=== PATIENT | female | born 1980 | race Caucasian/White ===

== ENCOUNTER 2018-04-22 19:29 | Emergency (ER) | payer OTHER ==
--- NOTE | 2018-04-22 20:17 | ER ---
Nurse's Notes [facility] Name: Sheela Butler Age: 38 yrs Sex: Female : 1980 Arrival Date: 04/22/2018 Time: 19:31 Bed Treatment Private MD: Diagnosis: Sacroiliitis, not elsewhere classified Presentation: 04/22 19:47 Presenting complaint: Patient states: she has been having low back pain after lifting a aa1 patient at work yesterday. C/O sharp low back pain 11/23. Transition of care: patient was not received from another setting of care. Onset of symptoms was April 21, 2018. Risk Assessment: Do you want to hurt yourself or someone else? Patient reports no desire to harm self or others. Initial Sepsis Screen: Does the patient meet any 2 criteria? No. Patient's initial sepsis screen is negative. Does the patient have a suspected source of infection? No. Patient's initial sepsis screen is negative. Care prior to arrival: None. 19:47 Method Of Arrival: Ambulatory aa1 19:47 Acuity: HAFSA 4 aa1 Historical: - Allergies: 19:48 No Known Allergies; aa1 - Home Meds: 19:48 citalopram oral [Active]; lisinopril Oral [Active]; aa1 - PMHx: 19:48 Depression; heart arrhythmia; Hypertension; aa1 - PSHx: 19:48 None; aa1 - Immunization history:: Flu vaccine is up to date. - Social history:: Smoking status: Patient/guardian denies using tobacco. - Ebola Screening: : No symptoms or risks identified at this time. Screenin:49 Abuse screen: Denies threats or abuse. Denies injuries from another. Abuse screen:. aa1 Nutritional screening: No deficits noted. Tuberculosis screening: No symptoms or risk factors identified. Fall Risk None identified. Assessment: 19:49 General: Appears in no apparent distress. uncomfortable, Behavior is calm, cooperative, aa1 appropriate for age. Pain: Complains of pain in low back area Pain currently is 7 out of 10 on a pain scale. Quality of pain is described as sharp, Pain began 1 day ago. Is continuous, Aggravated by repositioning. Neuro: Level of Consciousness is awake, alert, obeys commands, Oriented to person, place, time, situation, Moves all extremities. Full function Gait is steady. Respiratory: Airway is patent Respiratory effort is even, unlabored, Respiratory pattern is regular, symmetrical. GI: No signs and/or symptoms were reported involving the gastrointestinal system. : No signs and/or symptoms were reported regarding the genitourinary system. EENT: No signs and/or symptoms were reported regarding the EENT system. Derm: Skin is intact, is healthy with good turgor, Skin is pink, warm \T\ dry. Musculoskeletal: Circulation, motion, and sensation intact. Capillary refill < 3 seconds, Range of motion: intact in all extremities. 20:25 Reassessment: Patient appears in no apparent distress at this time. Patient is alert, aa1 oriented x 3, equal unlabored respirations, skin warm/dry/pink. Discussed d/c \T\ f/u instructions with pt; denies questions or concerns at this time. Vital Signs: 19:48 BP 134 / 71; Pulse 67; Resp 18; Temp 98.1; Pulse Ox 98% on R/A; Weight 117.93 kg; aa1 Height 5 ft. 6 in. (167.64 cm); Pain 7/10; 19:48 Body Mass Index 41.96 (117.93 kg, 167.64 cm) aa1 ED Course: 19:31 Patient arrived in ED. aa1 19:32 José Miguel Rojas MD is Attending Physician. aa1 19:47 Kathrin Bravo RN is Primary Nurse. aa1 19:47 Triage completed. aa1 19:48 Arm band placed on left wrist. aa1 19:49 Patient has correct armband on for positive identification. Bed in low position. Call aa1 light in reach. 20:25 No provider procedures requiring assistance completed. Patient did not have IV access aa1 during this emergency room visit. Administered Medications: No medications were administered Outcome: 20:16 Discharge ordered by . ps1 20:25 Discharged to home ambulatory. aa1 20:25 Condition: good 20:25 Discharge instructions given to patient, Instructed on discharge instructions, follow up and referral plans. medication usage, Demonstrated understanding of instructions, follow-up care, medications, Prescriptions given X 1. 20:26 Patient left the ED. aa1 Signatures: Kathrin Bravo RN RN aa1 José Miguel Rojas MD MD ps1
--- NOTE | 2018-04-22 20:17 | EDPHYS ---
Physician Documentation [facility] Name: Sheela Butler Age: 38 yrs Sex: Female : 1980 Arrival Date: 04/22/2018 Time: 19:31 Bed Treatment Private MD: ED Physician José Miguel Rojas HPI: 04/22 20:10 This 38 yrs old Female presents to ER via Ambulatory with complaints of Back ps1 Pain. 20:10 patient states that she injured her back with lifting a patient. Pain localized to ps1 lower left back. No radiation. Bilateral L>R. Pain rated as moderate. Not immunocompromised, on chronic sterioids, atraumatic, No saddle signs. c/w SI joint dysfunction. Historical: - Allergies: 19:48 No Known Allergies; aa1 - Home Meds: 19:48 citalopram oral [Active]; lisinopril Oral [Active]; aa1 - PMHx: 19:48 Depression; heart arrhythmia; Hypertension; aa1 - PSHx: 19:48 None; aa1 - Immunization history:: Flu vaccine is up to date. - Social history:: Smoking status: Patient/guardian denies using tobacco. - Ebola Screening: : No symptoms or risks identified at this time. ROS: 20:10 Constitutional: Negative for fever, chills, and weight loss, Eyes: Negative for injury, ps1 pain, redness, and discharge, Cardiovascular: Negative for chest pain, palpitations, and edema, Respiratory: Negative for shortness of breath, cough, wheezing, and pleuritic chest pain, Abdomen/GI: Negative for abdominal pain, nausea, vomiting, diarrhea, and constipation, MS/Extremity: Negative for injury and deformity, Skin: Negative for injury, rash, and discoloration, Neuro: Negative for headache, weakness, numbness, tingling, and seizure, Psych: Negative for depression, anxiety, suicide ideation, homicidal ideation, and hallucinations. 20:10 Back: Positive for decreased range of motion, . Exam: 20:10 Constitutional: This is a well developed, well nourished patient who is awake, alert, ps1 and in no acute distress. Head/Face: Normocephalic, atraumatic. Eyes: Pupils equal round and reactive to light, extra-ocular motions intact. Lids and lashes normal. Conjunctiva and sclera are non-icteric and not injected. Chest/axilla: Normal chest wall appearance and motion. Nontender with no deformity. No lesions are appreciated. Cardiovascular: Regular rate and rhythm. No gallops, murmurs, or rubs. Normal PMI, no JVD. No pulse deficits. Respiratory: Lungs have equal breath sounds bilaterally, clear to auscultation and percussion. No rales, rhonchi or wheezes noted. No increased work of breathing, no retractions or nasal flaring. Abdomen/GI: Soft, non-tender, with normal bowel sounds. No distension or tympany. No guarding or rebound. No evidence of tenderness throughout. 20:10 Back: SI joint dysfunction and asymmetry on L. Leg length discrepancy. L3-5 group curve ps1 SLRL. compensatory changes in thoracic and cervical spine. . Vital Signs: 19:48 BP 134 / 71; Pulse 67; Resp 18; Temp 98.1; Pulse Ox 98% on R/A; Weight 117.93 kg; aa1 Height 5 ft. 6 in. (167.64 cm); Pain 7/10; 19:48 Body Mass Index 41.96 (117.93 kg, 167.64 cm) aa1 Procedures: 20:14 Performed HVLA manipulation. HVLA performed to C,T,L spine. Pain improved after ps1 procedure. MDM: 20:00 Patient medically screened. ps1 20:14 Data reviewed: vital signs, nurses notes. ps1 Administered Medications: No medications were administered Disposition: 04/22/18 20:16 Discharged to Home. Impression: Sacroiliitis, not elsewhere classified. - Condition is Stable. - Discharge Instructions: Back Pain, Adult. - Prescriptions for Robaxin 500 mg Oral Tablet - take 2 tablet by ORAL route every 6 hours As needed; 40 tablet. - Medication Reconciliation Form, Thank You Letter, Antibiotic Education, Prescription Opioid Use form. - Follow up: Private Physician; When: As needed; Reason: Recheck today's complaints, Continuance of care, Re-evaluation by your physician. Follow up: Emergency Department; When: As needed; Reason: Worsening of condition. - Problem is new. - Symptoms are resolved. Signatures: Kathrin Bravo RN RN aa1 José Miguel Rojas MD MD ps1 Corrections: (The following items were deleted from the chart) 20:14 20:10 Back: Positive for decreased range of motion, SI joint dysfunction and assymetry ps1 on L. Leg length discrepancy. L3-5 group curve SLRL. compensatory changes in thoracic and cervical spine. , ps1 20:26 20:16 04/22/2018 20:16 Discharged to Home. Impression: Sacroiliitis, not elsewhere aa1 classified. Condition is Stable. Forms are Medication Reconciliation Form, Thank You Letter, Antibiotic Education, Prescription Opioid Use. Follow up: Private Physician; When: As needed; Reason: Recheck today's complaints, Continuance of care, Re-evaluation by your physician. Follow up: Emergency Department; When: As needed; Reason: Worsening of condition. Problem is new. Symptoms are resolved. ps1
== END 2018-04-22 20:26 | disposition home or self-care (01) ==
LOC: ER 19:29
DX: M46.1 Sacroiliitis, not elsewhere classified (principal); I10 Essential (primary) hypertension; F32.9 Major depressive disorder, single episode, unspecified; Z79.899 Other long term (current) drug therapy
CPT/HCPCS: 99282